=== PATIENT | female | born 1995 | race Caucasian/White ===

== ENCOUNTER 2017-08-31 11:59 | Inpatient (IN) | payer OTHER, SELFPAY ==
[~2017-08-31 11:59] MED LIST: Iopamidol 370 76% 100 ML VIAL ONE
[2017-08-31] MEDS ORDERED: Ondansetron HCl/PF 4 MG/2 ML Vial ONE ×2 (12:20→17:26)
[2017-08-31 12:47] LABS: #Basophils 0.1 thou/uL (0.0-0.2); #Lymphocytes 1.5 thou/uL (1.20-3.40); #Monocytes 0.6 thou/uL (0.11-0.59); #Neutrophils 13.8 thou/uL (1.40-6.50); %Basophils 0.4 % (0.0-1.0); %Eosinophils 0.2 % (0.0-10.0); %Lymphocytes 9.6 % (28.0-48.0); %Monocytes 3.9 % (0.0-4.0); Hematocrit 50.7 % (36.0-47.0); Mean Platelet Volume 6.1 fL (7.4-10.4); Red Blood Cell (RBC) Count 5.51 mill/uL (4.00-5.20); White Blood Cell (WBC) Count 16.1 thou/uL (4.8-10.8)
[2017-08-31 12:59] LABS: ALT (SGPT) 32 U/L (8-55); AST (SGOT) 32 U/L (5-30); Alkaline Phosphatase 85 U/L (40-150); Anion Gap 19 mmol/L (10-20); BUN (Urea Nitrogen) 8 mg/dL (8.4-21.0); Bilirubin, Total 0.9 mg/dL (0.2-1.2); Calc. Creatinine Clearance 0 mL/min (70-130); Calcium 10.2 mg/dL (7.8-10.44); Carbon Dioxide 19 mmol/L (22-29); Chloride 104 mmol/L (98-107); Estimated GFR-MDRD 81; Globulin 3.7 g/dL (2.4-3.5); Lipase 22 U/L (8-78); Protein, Total 8.8 g/dL (6.0-8.3)
--- NOTE | 2017-08-31 13:52 | CT ---
CT ABDOMEN AND PELVIS WITH IV CONTRAST: Date: 08/31/17 HISTORY: Abdominal pain. FINDINGS: The lung bases are clear. The liver, pancreas, adrenal glands, and left kidney are normal. There is a 5.0 mm low density lesion in the right renal cortex, likely cyst. There is a 1.0 cm low density lesi on in the posterior aspect of the spleen, which may either represent a cyst or hemangioma. No free ai r or lymphadenopathy is seen. No calcified gallstones are identified. Uterus and ovaries are present. There is a small amount of free fluid in the pelvis. There is a fat-c ontaining 2.0 cm left adnexal mass, likely ovarian dermoid. No acute osseous abnormalities are noted. An abnormal fluid-filled appendix is not visualized. IMPRESSION: 1. Left ovarian dermoid. 2. Free fluid in the pelvis. 3. Further evaluation with pelvic ultrasound is recommended. POS: [facility]
[2017-08-31] MEDS ORDERED: Ketorolac Tromethamine 30 MG/ML VIAL ONE ×2 (13:57→17:26)
[2017-08-31 14:11] LABS: Bilirubin Negative (Negative); Blood, Urine Negative (Negative); Glucose, Urine (Dipstick) Negative (Negative); Ketone, Urine 40 mg/dL (Negative); Nitrite Negative (Negative); Protein, Urine (Dipstick) Negative (Neg-Trace); Urobilinogen 0.2 mg/dL (0.2-1.0)
--- NOTE | 2017-08-31 15:30 | ULT ---
PELVIC ULTRASOUND INCLUDING TRANSABDOMINAL AND VASCULAR DUPLEX WITH COLOR AND SPECTRAL DOPPLER IMAGIN G: Date: 08/31/17 HISTORY: Abdominal pain. Concern for left adnexal mass on prior CT. FINDINGS: The uterus measures 6.3 x 2.6 x 3.3 cm. The right ovary measures 1.6 x 1.4 x 2.7 cm. There is an echogenic circumscribed mass in the left ovary/adnexal region which measures approximatel y 2.0 x 2.6 cm, corresponding to the fatty mass on prior CT scan. In review of the prior CT scan, there appears to be an abnormally dilated appendix with a diameter up to approximately 1.3 cm, which contains an appendicolith. No evidence for significant periappendicea l fat stranding. Findings are consistent with acute appendicitis. IMPRESSION: 1./ Fatty mass in the left ovary/adnexa, evidence for a dermoid or a teratoma of the left ovary/adne xa. 2. Unremarkable uterus and right ovary. 3. Abnormal appendix noted on review of the prior CT scan of 08/31/17 with dilated appendix and an a ppendicolith, without periappendiceal fat stranding. Findings discussed with Dr. Caballero, who indicated that the patient primarily had left upper quadrant pain, but had an abnormal white count. Surgical consultation in this regard was recommended. Findings discussed with Dr. Caballero at 1510 hours. CODE CR. POS: [facility]
[2017-08-31] MEDS ORDERED: Glycopyrrolate 0.2 MG/ML 5 ML SYRINGE ONE (17:26)
[2017-08-31] MEDS ORDERED: Lidocaine 1% PF 5 ML VIAL ONE (17:26)
[2017-08-31] MEDS ORDERED: diphenhydrAMINE 50 MG/ML VIAL ONE (17:26)
[2017-08-31] MEDS ORDERED: Propofol 200 MG/20 ML VIAL ONE (17:26)
[2017-08-31] MEDS ORDERED: Dexamethasone 20 MG/5 ML VIAL ONE (17:26)
[2017-08-31] MEDS ORDERED: Sodium Chloride 0.9% 1,000 ML IV SCH (17:59)
[2017-08-31] MEDS ORDERED: Ondansetron ODT 4 MG TAB SL PRN (17:59)
[2017-08-31] MEDS ORDERED: Ondansetron HCl/PF 4 MG/2 ML Vial IVP PRN ×3 (17:59→22:20)
[2017-08-31] MEDS ORDERED: Ketorolac Tromethamine 30 MG/ML VIAL IVP SCH (18:00)
[2017-08-31] MEDS ORDERED: Bupivacaine/Epinephrine 0.25% 30 ML VIAL ONE (20:09)
[2017-08-31] MEDS ORDERED: HYDROmorphone 0.5 MG/0.5 ML SYRINGE ONE (20:10)
[2017-08-31] MEDS ORDERED: Fentanyl 100 MCG/2 ML VIAL ONE (20:10)
[2017-08-31] MEDS ORDERED: Promethazine HCl 25 MG/ML VIAL ONE (20:11)
[2017-08-31] MEDS ORDERED: Midazolam HCl 2 mg/2 ml Vial ONE (20:29)
[2017-08-31] MEDS ORDERED: cefOXitin Sodium 2 GM, Syringe 1 ML in Sterile Water 10 ML SLOW IVP SCH (20:30)
[2017-08-31] MEDS ORDERED: Promethazine HCl 25 MG/ML VIAL IM PRN ×2 (21:43→22:20)
[2017-08-31] MEDS ORDERED: Promethazine HCl 25 MG/ML VIAL SLOW IVP PRN (21:43)
[2017-08-31] MEDS ORDERED: HYDROmorphone 2 MG/ML VIAL SLOW IVP PRN (21:43)
[2017-08-31] MEDS ORDERED: HYDROcodone/Acetaminophen 7.5/325 mg Tablet PO PRN ×2 (21:50)
[2017-08-31] MEDS ORDERED: Dextrose 5% in Water 1,000 ML IV PRN (22:20)
[2017-08-31] MEDS ORDERED: hydrALAZINE 20 MG/ML VIAL SLOW IVP PRN (22:20)
[2017-08-31] MEDS ORDERED: Morphine 4 MG/ML VIAL SLOW IVP PRN (22:20)
[2017-08-31] MEDS ORDERED: Dextrose 50% Abboject 50 ML SYRINGE SLOW IVP PRN (22:20)
[2017-08-31] MEDS ORDERED: Morphine 2 mg/2ml in 0.9% NaCl PF SYRINGE SLOW IVP PRN (22:20)
[2017-08-31] MEDS: Sodium Chloride 0.9% 1,000 ML IV SCH (22:45)
[2017-09-01] MEDS: Ketorolac Tromethamine 30 MG/ML VIAL IVP SCH ×2 (00:11→05:49)
--- NOTE | 2017-09-01 01:08 | HP ---
DATE OF CONSULTATION: 08/31/2017 CHIEF COMPLAINT: Right lower quadrant abdominal pain. HISTORY OF PRESENT ILLNESS: The patient is a 21-year-old healthy white female. She had onset of low er abdominal pain last night. She had an episode of nausea and vomiting today. She presented to the emergency room for further evaluation. CT scan was obtained revealing evidence of acute appendiciti s. White blood cell count is elevated at 16,000. She is also noted to have a left ovarian cyst. PAST MEDICAL HISTORY: Negative. PAST SURGICAL HISTORY: [place] tooth extraction and tonsillectomy as a child. MEDICATIONS: Oral contraceptive pill. ALLERGIES: No known drug allergies. PERSONAL AND SOCIAL HISTORY: She is single. 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 He r father is present at bedside. REVIEW OF SYSTEMS: Otherwise, unremarkable. FAMILY HISTORY: Noncontributory. PHYSICAL EXAMINATION: VITAL SIGNS: She is afebrile. Vital signs within normal limits. GENERAL: She is a well-developed, well-nourished, pleasant white female resting in bed in no acute d istress. She is alert and oriented x3. HEENT: Unremarkable. NECK: Supple, without mass or tenderness. LUNGS: Clear to auscultation throughout. CARDIAC: Regular rate and rhythm without murmur. ABDOMEN: Scaphoid, soft. She is focally tender in the right lower quadrant with obvious guarding. EXTREMITIES: Unremarkable. ASSESSMENT: Patient with acute appendicitis. PLAN: Laparoscopic appendectomy. I have discussed the operation in detail with the patient and her father as well as potential risks. They understand and agree to proceed with surgery at this time.
[2017-09-01] MEDS: Sodium Chloride 0.9% 1,000 ML IV SCH (05:49)
[2017-09-01 06:18] LABS: #Lymphocytes 1.4 thou/uL (1.20-3.40); #Monocytes 0.3 thou/uL (0.11-0.59); #Neutrophils 14.8 thou/uL (1.40-6.50); %Basophils 0.1 % (0.0-1.0); %Lymphocytes 8.4 % (28.0-48.0); %Monocytes 1.6 % (0.0-4.0); Hematocrit 41.2 % (36.0-47.0); Mean Platelet Volume 6.7 fL (7.4-10.4); Red Blood Cell (RBC) Count 4.28 mill/uL (4.00-5.20); White Blood Cell (WBC) Count 16.5 thou/uL (4.8-10.8)
[2017-09-01 07:46] VITALS: BP 136/80; TEMP 97.8
[2017-09-01] MEDS ORDERED: Famotidine 20 MG TAB PO SCH (09:00)
[2017-09-01] MEDS ORDERED: Famotidine/PF 20 mg/2ml Vial SLOW IVP SCH (09:00)
--- NOTE | 2017-09-01 17:05 | OP ---
DATE OF PROCEDURE: 08/31/2017 PREOPERATIVE DIAGNOSIS: Acute appendicitis. POSTOPERATIVE DIAGNOSIS: Acute appendicitis. OPERATION PERFORMED: Laparoscopic appendectomy. SURGEON: Sushant Jaime M.D. ANESTHESIA: General endotracheal. INDICATIONS: The patient is a 21-year-old otherwise healthy white female who presented with findings consistent with acute appendicitis. She is taken to the operating room at this time for laparoscopi c appendectomy. DESCRIPTION OF OPERATION: Informed consent was obtained. The patient was taken to the operating mary m where general endotracheal anesthesia was obtained with the patient in supine position. Abdomen wa s prepped with ChloraPrep and draped in sterile fashion. Local anesthetic was infiltrated using 0.25 % Marcaine with epinephrine and 5 mm infraumbilical incision was created through which a Veress needl e was passed into the peritoneal cavity and pneumoperitoneum was established using carbon dioxide up to a pressure of 15 mmHg. A 5 mm trocar port was passed through this same incision. Laparoscopic ca austen was passed through this port. Under direct vision, 2 additional ports were placed including a 5 mm left lower quadrant port and a 12 mm suprapubic port. Attention was turned initially to her pelvis. She had normal female adnexa. There had been concern regarding a left ovarian cyst. The left ovary was a little bit larger than the right ovary, but ther e was no obvious abnormal cystic structure formation. Photodocumentation was obtained. Attention was turned to the right lower quadrant where markedly enlarged indurated appendix was ident ified consistent with typical appendicitis. This unfortunately was inflamed all the way down to its base. The mesoappendix was taken down using electrocautery. The base of the appendix was skeletoniz ed, but there was still marked thickening and inflammation at this level. I decided to divide it wit h a stapler. A single firing of the [place] stapler using a blue load was used to remove the appendi x, which was then placed in a specimen retrieval sac. The appendix within the sac was removed throug h the suprapubic port site. The fascia was closed with 0 Vicryl suture using a GraNee needle. The w ound was irrigated. The abdominal contents were examined again. Pelvis was irrigated and aspirated. The staple line was inspected and found to be intact. There was certainly no evidence of perforation. There was no sig nificant blood loss during the course of the operation. All ports and instruments were removed under direct vision. Pneumoperitoneum was carefully evacuated. Quarter percent Marcaine with epinephrine was infiltrated in each port site. Skin edges approximated with 4-0 Monocryl subcuticular suture. Dermabond was placed externally. There were no complications. The patient tolerated the procedure w ell and was taken to recovery in stable condition.
== END 2017-09-01 11:25 | disposition home or self-care (01) | DRG 343 ==
LOC: SCSER 11:59 → SJJU 17:25
PROVIDERS: ADMIT Surgery; ATTEND Surgery
PROC: 0DTJ4ZZ Resection of Appendix, Percutaneous Endoscopic Approach (ICD-10-PCS; principal; 2017-08-31)
DX: K35.80 Unspecified acute appendicitis (principal)
CPT/HCPCS: 36415; 36416; 74177; 76856; 80053; 81003; 83690; 84703; 85025; 96361; 96374; 96375; A4216; J0131; J0694; J1100; J1170; J1200; J1885; J2001; J2250; J2405; J2550; J2704; J3010